=== PATIENT | female | born 1995 | race Caucasian/White ===

== ENCOUNTER → 2018-10-27 | Outpatient (CLI) | payer OTHER ==
--- NOTE | 2018-10-27 16:16 | KCIC ---
EXAM: MRI RIGHT ANKLE/HINDFOOT DATE: 10/27/2018 2:45 PM CLINICAL INDICATION: Medial and lateral right ankle pain COMPARISON: Ankle radiographs 07/08/2018 TECHNIQUE: Multiplanar, multisequence MR imaging of the right ankle was performed without IV contrast. FINDINGS: There is no ankle, posterior subtalar or middle subtalar/talonavicular joint effusions.. Tendons: Posterior tibialis, flexor digitorum longus and flexor hallucis longus tendons are intact without tenosynovitis. Peroneus longus and peroneus brevis tendons are intact without tenosynovitis. The peroneal tendons are anatomically positioned behind the lateral malleolus. Anterior tibialis, extensor digitorum longus and extensor hallucis longus tendons are also intact, without tenosynovitis. Achilles tendon intact with normal signal and morphology. The soleus is mildly low-lying. Physiologic fluid at the retrocalcaneal bursa. Ligaments: Medial deltoid ligaments are intact. Lateral ankle ligaments including the anterior talofibular ligament are intact. Anterior and posterior tibiofibular ligaments are intact. Spring ligament intact. Plantar fascia intact without marginal osteitis or soft tissue swelling. Sinus Tarsi within normal limits, without mass lesion or edema pattern. Tarsal tunnel within normal limits, without mass lesion. Articular Cartilage/joint line: No definite talar dome OCD lesion is identified. Tibiotalar, talonavicular and posterior subtalar joint cartilage is grossly preserved. Marginal joint spaces appear preserved including calcaneocuboid joint. Bone/Bone Marrow: Marrow edema is seen within the medial talus, uncertain clinical significance. 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 No evidence of acute fracture. IMPRESSION: 1. 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 2. The medial, syndesmotic and lateral ankle ligaments are intact. 3. Mild marrow edema within the medial aspect of the talus, possibly reactive or from contusion. No associated fracture is identified. Electronically signed by: Frantz Teixeira MD (10/27/2018 4:12 PM) [id number]
== END | disposition home or self-care (01) ==
LOC: KCIC MRI 14:21
PROVIDERS: ATTEND Orthopaedic Surgery Sports Medicine
DX: S93.491D Sprain of other ligament of right ankle, subsequent encounter (principal); R60.0 Localized edema; X58.XXXD Exposure to other specified factors, subsequent encounter
CPT/HCPCS: 73721